=== PATIENT | male | born 1955 | race Hispanic/Latino ===

== ENCOUNTER 2021-08-23 11:47 | Outpatient (CLI) | payer OTHER | END 2021-08-23 11:48 | disposition home or self-care (01) | LOC: CSHLAB 11:47 | PROVIDERS: ATTEND Internal Medicine Gastroenterology | DX: Z20.822 Contact with and (suspected) exposure to COVID-19 (principal); K63.5 Polyp of colon | CPT/HCPCS: U0003; U0005 ==

== ENCOUNTER 2021-08-26 06:46 | Day surgery (SDC) | payer OTHER ==
[2021-08-23 14:01] VITALS: BMI 31.8
[2021-08-26] MEDS ORDERED: Lidocaine 1% MPF 2 ML VIAL ONE (08:18)
[2021-08-26] MEDS ORDERED: PROPOFOL 60 ML ONE (08:52)
[2021-08-26] MEDS ORDERED: Lidocaine 1% PF 5 ML VIAL ONE (08:52)
== END 2021-08-26 10:30 | disposition home or self-care (01) ==
LOC: CSHSDC 06:46
PROVIDERS: ATTEND Internal Medicine Gastroenterology
PROC: 0DBN8ZZ Excision of Sigmoid Colon, Via Natural or Artificial Opening Endoscopic (ICD-10-PCS; principal; 2021-08-26)
PROC: 0DBL8ZZ Excision of Transverse Colon, Via Natural or Artificial Opening Endoscopic (ICD-10-PCS; principal; 2021-08-26)
DX: Z12.11 Encounter for screening for malignant neoplasm of colon (principal); D12.3 Benign neoplasm of transverse colon; D12.5 Benign neoplasm of sigmoid colon; K64.9 Unspecified hemorrhoids; I10 Essential (primary) hypertension; E11.9 Type 2 diabetes mellitus without complications; E78.5 Hyperlipidemia, unspecified; Z86.010 Personal history of colon polyps; Z79.82 Long term (current) use of aspirin; Z79.84 Long term (current) use of oral hypoglycemic drugs; Z79.899 Other long term (current) drug therapy
CPT/HCPCS: 88305; J2704